=== PATIENT | female | born 1995 | race Caucasian/White ===

== ENCOUNTER → 2018-07-10 | Outpatient (CLI) | payer OTHER ==
[~2018-07-10] MED LIST: ONDAN4ODT PO
--- NOTE | 2018-07-10 14:02 | Diagnostic Imaging Report ---
INDICATION: Palpable lump left breast. Sonographic interrogation of the area of palpable lump in the left breast was performed. This is approximately 11 - 1 o'clock location 9 cm from the nipple. No sonographic abnormality is seen. No solid or cystic mass is detected. IMPRESSION: BI-RADS category one No sonographic abnormality is seen. Continued close clinical and self breast exam is recommended to confirm stability of the area of palpable abnormality. ACR BI-RADS Category 1: Negative. Result letter will be mailed to the patient. Note: At least 10% of breast cancer is not imaged by mammography. Dictated by: Dictated on workstation # [id number]
== END ==
LOC: RAD 12:09
PROVIDERS: ATTEND Nurse Practitioner
DX: N63.20 Unspecified lump in the left breast, unspecified quadrant (principal)
CPT/HCPCS: 76642